=== PATIENT | female | born 1980 | race Caucasian/White ===

== ENCOUNTER 2019-01-22 22:39 | Emergency (ER) | payer BC ==
[~2019-01-22] VITALS: Ht 152.4 cm; Wt 49.9 kg
[2019-01-23] MEDS ORDERED: AUGMENTIN 875-1 EACH PO (00:20)
== END 2019-01-23 00:39 | disposition home or self-care (01) ==
LOC: ED 22:39
DX: S61.451A Open bite of right hand, initial encounter (principal); W54.0XXA Bitten by dog, initial encounter
CPT/HCPCS: 73110; 90715; 99283